=== PATIENT | female | born 2000 | race Caucasian/White ===

== ENCOUNTER 2019-01-21 10:29 | Inpatient (IN) ==
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
[2019-01-21 11:05] LABS: White Blood Count 8.2 K/mcL (4.3-11.1)
[2019-01-21 11:06] LABS: Basophils % 0.4 %; Eosinophils # 0.1 K/mcL (0.0-0.6); Eosinophils % 0.6 %; Hematocrit 42.8 % (35.3-44.9); Hemoglobin 14.8 g/dL (11.5-15.4); Immature Granulocytes % 0.4 % (0-4); Lymphocytes # 1.8 K/mcL (0.6-4.6); Lymphocytes % 21.7 %; Mean Corpuscular HGB Conc 34.6 g/dL (31.6-35.5); Mean Corpuscular Hemoglobin 28.5 pg (28.0-33.3); Mean Corpuscular Volume 82.5 fL (83.0-100.0); Mean Platelet Volume 9.6 fL (9.4-12.4); Monocytes # 0.8 K/mcL (0.0-1.3); Monocytes % 9.8 %; Neutrophils # 5.5 K/mcL (1.6-8.9); Platelet Count 399 K/mcL (140-400); Red Blood Count 5.19 M/mcL (3.82-4.97); Segmented Neutrophils % 67.1 %
--- NOTE | 2019-01-21 11:06 | Emergency Department Note ---
Disposition Clinical Impression: Suicidal ideation Depression Qualifiers: Depression Type: other depression Qualified Code(s): F32.89 - Other specified depressive episodes Disposition: Still a Patient Referrals: Keren Larson MD [Primary Care Provider] - Forms: ED Satisfaction Letter Time of Disposition: 11:06 General Adult HPI - General Chief complaint: ED Psychiatric Symptoms Stated complaint: psych eval Time Seen by Provider: 01/21/19 10:33 Source: patient Limitations: no limitations Nursing Notes Reviewed: Yes Vital Signs Reviewed: Yes - History of Present Illness HPI Narrative: ED attending attestation note: I examined this patient and my medical decision-making was reviewed with the emergency medicine resident Bea Aquino. I agree with the documented findings, disposition and treatment plan as described except to the extent set forth below. For any procedures performed I was present for the critical portions, and for any EKGs performed and reviewed I have looked over the EKG and interpretations and discussed with provider Briefly: A 18-year-old female history of depression presents with suicidal ideations with plan to "drive her car in traffic". Physical examination is benign afebrile with stable vitals. We will undergo medical clearance and evalu ation by mental health services. [place] slip properly completed executed signed and in chart. Pain Scale: 5 - Related Data Home Medications Medication Instructions Recorded Confirmed Insulin Pump Cartridge [Insulin 1 device SQ AD 11/07/18 11/07/18 Pump] Previous Rx's Medication Instructions Recorded Ondansetron ODT [Zofran ODT] 4 mg SL Q8HR PRN #14 tab.rapdis 11/07/18 Allergies Allergy/AdvReac Type Severity Reaction Status Date / Time No Known Allergies Allergy Verified 11/07/18 04:51 Constitutional: Denies: fever, chills Cardiovascular: Reports: chest pain (Associated with her anxiety. States it feels her normal anxiety.) Respiratory: Denies: cough, dyspnea Gastrointestinal: Denies: abdominal pain, nausea, vomiting, diarrhea Genitourinary: Denies: urgency, dysuria, frequency Psychiatric: Reports: anxiety, depression, suicidal thoughts. Denies: auditory hallucinations, visual hallucinations Past Medical History - Past Medical History Medical history: Reports: diabetes Surgical history: Reports: non-contributory Psychiatric history: Reports: no psych history - Social History Smoking Status: Never smoker Smokeless Tobacco Status: No Alcohol use: Reports: none Drug use: Reports: none Physical Exam - General Limitations: no limitations General appearance: alert, in no apparent distress Course Vital Signs Temperature 98.3 F 01/21/19 10:33 Pulse Rate 83 01/21/19 10:33 Respiratory Rate 16 01/21/19 10:33 Blood Pressure 128/96 01/21/19 10:33 O2 Sat by Pulse Oximetry 100 01/21/19 10:33 Temperature 98.3 F 01/21/19 10:33 Pulse Rate 83 01/21/19 10:33 Respiratory Rate 16 01/21/19 10:33 Blood Pressure 128/96 01/21/19 10:33 O2 Sat by Pulse Oximetry 100 01/21/19 10:33 Oxygen Delivery Oxygen Delivery Room Air
[2019-01-21 11:19] LABS: Bilirubin,Urine Negative (Negative); Blood,Urine Negative (Negative); Clarity,Urine Clear (Clear); Color,Urine Yellow (Yellow); Glucose,Urine (UA) 500 mg/dL (Normal); Ketones,Urine 15 mg/dL (Negative); Leukocyte Esterase,Urine Negative (Negative); Nitrite,Urine Negative (Negative); Protein,Urine Trace mg/dL (Neg-Trace); Specific Gravity,Urine 1.028 (1.010-1.025); Urobilinogen,Urine Normal (Normal)
[2019-01-21 11:20] LABS: Acetaminophen < 10 mcg/mL (10-20); BUN/Creatinine Ratio 16 (6-26); Blood Urea Nitrogen 11 mg/dL (6-20); Calcium 9.4 mg/dL (8.6-10.3); Carbon Dioxide 25 mEq/L (23-29); Chloride 105 mEq/L (98-107); Ethanol < 10 mg/dL (Less than 10); Glucose 154 mg/dL (70-105); Osmolality,Calculated 286 (280-300); Potassium 3.5 mEq/L (3.5-5.1); Salicylate < 2.5 mg/dL (15.0-30.0); Sodium 137 mEq/L (136-145); eGFR For African Americans > 60; eGFR For Non-African Americans > 60
[2019-01-21 11:26] LABS: Amphetamine Screen,Urine Negative ng/mL (Cutoff=1000); Barbiturate Screen,Urine Negative ng/mL (Cutoff=200); Benzodiazepines Screen,Urine Negative ng/mL (Cutoff=200); Cannabinoid Screen,Urine Negative ng/mL (Cutoff = 50); Cocaine Screen,Urine Negative ng/mL (Cutoff= 300); Opiate Screen,Urine Negative ng/mL (Cutoff=300); Phencyclidine Screen,Urine Negative ng/mL (Cutoff=25)
[2019-01-21] MEDS ORDERED: Haloperidol Lactate 5 MG/ML VIAL IM PRN (14:32)
[2019-01-21] MEDS ORDERED: Mag Hydrox/Al Hydrox/Simeth 30 ML UDC PO PRN (14:32)
[2019-01-21] MEDS ORDERED: *HR* LORazepam 1 MG TABLET PO PRN (14:32)
[2019-01-21] MEDS ORDERED: *HR* LORazepam 2 MG/ML VIAL IM PRN (14:32)
[2019-01-21] MEDS ORDERED: Ibuprofen 400 MG TABLET PO PRN (14:32)
[2019-01-21] MEDS ORDERED: MOM Conc 10 ML UD.LIQ PO PRN (14:32)
[2019-01-21] MEDS: INSULIN PUMP CARTRIDGE SQ SCH (15:19)
[2019-01-21] MEDS ORDERED: Dextrose Gel 15 GM/37.5 ML TUBE PO PRN ×2 (15:21)
--- NOTE | 2019-01-21 15:23 | Electrocardiograph Report ---
[facility] Test Date: 2019-01-21 Pat Name: Arianna Alegria Department: EXAM3 Room: 1A41 Gender: F Cabinet Finisher: : 2000 Requested By: Astrid Aquino Order Number: [id number] Reading MD: Lee Bergeron Measurements Intervals [place] Rate: 76 P: 65 VA: 132 QRS: 68 QRSD: 93 T: 42 QT: 393 QTc: 442 Interpretive Statements Sinus arrhythmia Electronically Signed On 01-21-2019 15:22:00 EDT by Lee Bergeron
[2019-01-22] MEDS: BuPROPion XL (24 HR) 150 MG TABLET PO SCH (10:11)
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
[2019-01-22] MEDS: INSULIN PUMP CARTRIDGE SQ SCH (15:37)
[2019-01-22] MEDS: traZODone 50 MG TABLET PO PRN (23:53)
[2019-01-22] MEDS: hydrOXYzine pamoate 25 MG CAPSULE PO PRN (23:53)
[2019-01-23] MEDS: BuPROPion XL (24 HR) 150 MG TABLET PO SCH (09:24)
--- NOTE | 2019-01-23 09:38 | Psychiatry Progress Note ---
Date of Encounter: 01/23/19 Time of Encounter: 09:34 Subjective Interval history: Client reports feeling a little better. SI has lessened. Took Trazodone last night and slept really well. Already asking to have this medication at the time of discharge. Discussed how important sleep is for mental health. Client reports she can normally sleep really well but that recent stressors have her feeling overly anxious. States last night her anxiety was bad. Things her ex- girlfriend said to her played over in her head "like a broken record." Still easily tearful when talking about her break-up and the accusations her ex made against her. Reports prn Vistaril helped with this. Not quite ready for discharge but looking a little better. Has been pleasant and cooperative on the unit. Attending groups. Blood sugars have been controlled. Family supportive and visited last night. Review of Systems Constitutional: Denies: fever, chills, weakness, weight change Eyes: Denies: eye pain, vision change Ears, Nose, Throat: Denies: ear pain, throat pain, dental pain, hearing loss, congestion Cardiovascular: Denies: chest pain, palpitations, dyspnea on exertion Respiratory: Denies: cough, dyspnea, wheezes Gastrointestinal: Denies: abdominal pain, nausea, vomiting, diarrhea, constipation Musculoskeletal: Denies: joint swelling, joint pain Neurological: Denies: headache, weakness, numbness, memory loss Psychiatric: Reports: depression, abnormal sleep pattern, suicidal ideation (Suicide ideation off and on for past year. Not experiencing it presently during interview. ), change in appetite (Decrease appetite for past week since breaking up with her partner. ), anhedonia, change in libido, difficulty concentrating Results - Vital Signs Vital Signs: Temp Pulse Resp BP Pulse Ox 98.7 F 101 20 137/80 99 01/23/19 09:00 01/23/19 09:00 01/23/19 09:00 01/23/19 09:00 01/23/19 09:00 Assessment and Plan (1) Major depress dis, severe Current visit: Yes Status: Acute Plan: Continue hospitalization, Close observation, Suicide Precautions per unit protocol, Encourage participation in unit milieu, Group Therapy, Monitor sleep, Monitor appetite Risks, benefits, side effects, alternatives discussed w/pt: Yes Patient agreeable to treatment: Yes Consult Discharge Plan - Plan Referrals: [facility] [Outside] (Message left with scheduling to set up appointment. 1A Equity Analyst will call patient with appointment if discharged over the weekend.) Psychiatry Exam - Constitutional Vitals: Temp Pulse Resp BP Pulse Ox 98.7 F 101 20 137/80 99 01/23/19 09:00 01/23/19 09:00 01/23/19 09:00 01/23/19 09:00 01/23/19 09:00 General appearance: age & developmentally appropriate, well-groomed, well- nourished - Musculoskeletal Gait: normal Station: relaxed Strength & Tone: normal for patient - Psychiatric Patient Orientation: Yes Person, Yes Time, Yes Place Level of alertness: Alert Behavior: calm, cooperative Psychomotor activity: Normal Eye Contact: Maintains Eye Contact Mood Description: Depressed Affect description: congruent with mood Speech Volume: Normal Speech pattern: normal rate, normal rhythm, normal tone, fluent, spontaneous Language & Vocabulary: consistent with education Thought Process: Linear, Goal Oriented Thought Content: Yes Suicidal ideation, No Homicidal ideation, No Overt delusions Perceptual Disturbances: No Auditory hallucinations, No Visual hallucinations Attention Span Ability: Capable of Focused Attention Memory Description: Grossly Intact Patient Reliability: Reliable Historian Fund of knowledge: Yes abstraction ability, Yes aware of current events Intelligence Estimate: Average Judgment: Fair Insight: Partial
[2019-01-23] MEDS: hydrOXYzine pamoate 25 MG CAPSULE PO PRN ×2 (15:07→22:52)
[2019-01-23] MEDS: INSULIN PUMP CARTRIDGE SQ SCH (21:13)
[2019-01-23] MEDS: traZODone 50 MG TABLET PO PRN (22:52)
[2019-01-24] MEDS: BuPROPion XL (24 HR) 150 MG TABLET PO SCH (08:58)
--- NOTE | 2019-01-24 09:04 | Discharge Summary ---
Date of Encounter: 01/24/19 Time of Encounter: 09:01 Diagnosis - Discharge Diagnosis (1) Major depress dis, severe Status: Acute Medications - Discharge Medications Prescriptions: traZODone [TraZODone] 50 mg PO HS PRN #30 tablet PRN Reason: Insomnia hydrOXYzine pamoate [Vistaril] 25 mg PO TID PRN #90 capsule PRN Reason: Anxiety BuPROPion XL (24 HR) [Wellbutrin Xl] 150 mg PO DAILY #30 tab.er.24h Glucagon,Human Recombinant [Glucagon Emergency Kit] 1 mg IM AD PRN 01/21/19 [History] Insulin ASPART [NovoLOG] 0 - 70 unit SQ DAILY 01/21/19 [History] BuPROPion XL (24 HR) [Wellbutrin Xl] 150 mg PO DAILY #30 tab.er.24h 01/24/19 [Rx] Patient Taking Own Medication 1 each SQ AD each 01/24/19 [Rx] hydrOXYzine pamoate [Vistaril] 25 mg PO TID PRN #90 capsule 01/24/19 [Rx] traZODone [TraZODone] 50 mg PO HS PRN #30 tablet 01/24/19 [Rx] Allergy/AdvReac Type Severity Reaction Status Date / Time No Known Allergies Allergy Verified 01/21/19 20:48 Results Procedures and tests throughout hospitalization: Completed Lab Orders Category Date Time Status Acetaminophen Stat Lab 01/21/19 10:45 Completed Basic Metabolic Panel Stat Lab 01/21/19 10:45 Completed Complete Blood Count [HEME] Stat Lab 01/21/19 10:45 Completed Drug Screen, Urine [UCHEM] Stat Lab 01/21/19 10:55 Completed Ethanol Stat Lab 01/21/19 10:45 Completed HCG,Routine Test Stat Lab 01/21/19 10:45 Completed Salicylate Stat Lab 01/21/19 10:45 Completed Urinalysis reflex Microscopic [URIN] Stat Lab 01/21/19 10:55 Completed Provider Date of admission: 01/21/19 12:30 Primary care physician: PCP NONE Discharging clinician: Alison Anton Psychiatry Exam - Constitutional Vitals: Temp Pulse Resp BP Pulse Ox 98.7 F 78 16 132/80 98 01/23/19 19:25 01/23/19 19:25 01/23/19 19:25 01/23/19 19:25 01/23/19 19:25 General appearance: age & developmentally appropriate, well-groomed, well- nourished - Musculoskeletal Gait: normal Station: relaxed Strength & Tone: normal for patient - Psychiatric Patient Orientation: Yes Person, Yes Time, Yes Place Level of alertness: Alert Behavior: calm, cooperative Psychomotor activity: Normal Eye Contact: Maintains Eye Contact Mood Description: Anxious Affect description: full range Speech Volume: Normal Speech pattern: normal rate, normal rhythm, normal tone, fluent, spontaneous Language & Vocabulary: consistent with education Thought Process: Linear, Goal Oriented Thought Content: No Suicidal ideation, No Homicidal ideation, No Overt delusions Perceptual Disturbances: No Auditory hallucinations, No Visual hallucinations Attention Span Ability: Capable of Focused Attention Memory Description: Grossly Intact Patient Reliability: Reliable Historian Fund of knowledge: Yes abstraction ability, Yes aware of current events Intelligence Estimate: Average Judgment: Fair Insight: Partial Hospital Course Hospital course: Ms. Alegria is a 18 year old female who was admitted for SI after a recent break-up with her girlfriend. Client was started on Wellbutrin along with prn Trazodone and Vistaril with good clinical effect. Client is a Type 1 diabetic and previous antidepressants interfered with her blood sugars. However, client seemed to tolerate this new regimen without difficulty. While on the unit she was social with her peers and regularly attended groups. She ate and slept well. Today she is denying any further SI, intent, or plan. She is bright, reactive, and future oriented. This investigative writer spoke with both of her parents this morning to allow them to ask any questions. Client intends to live with them for the next few weeks and states this will be a supportive environment for her. Client is already linked with [facility] for outpatient follow-up and is aware of when her next appointment is scheduled. Total time spent with client greater than 30 minutes. Patient was educated of her diagnosis and the risks, benefits, and side effects of this treatment and alternative treatment options and was monitored for r esponsiveness and side effects. Mood, anxiety, sleep, appetite, and interest improved, as did future orientation. Self-harm thoughts subsided, thinking cleared, psychosis resolved, and mood stabilized. Patient was able to attend both individual and group therapy sessions as well as meeting with the psychiatrist daily and urged to discuss any medication or treatment issues or other concerns. The patient was educated primarily by verbal means about their diagnosis and manifestations in their life. The option for treatment including group and individual therapy programming was offered to the patient in the use of medications with all their potential risks, benefits, and side effects were discussed with the patient at length. The patient was given the opportunity to ask questions and was noted to participate in the treatment in the planning process. The patient felt ready and eager to be discharged from the inpatient psychiatric unit to continue on with treatment as an outpatient. The patient agreed that she is safe for this disposition. The patient was considered to be able to participate in informed consent and decision making with respect to medical, legal, and financial issues of the time of discharge. At the time of discharge the patient adamantly denied any concerns for lethality including suicidal or homicidal thoughts ideations or plans and was future oriented toward ongoing mental health care, medical follow-up and sobriety. - Time Spent with Patient Total time spent providing and/or coordinating discharge services: Greater than 30 minutes Assessment and Plan - Patient/Caregiver Discharge Instructions Activity: resume usual activities as tolerated Diet: diabetic diet - Follow up Plan Follow up with: [facility] [Outside] (Message left with scheduling to set up appointment. 1A Kosher Inspector will call patient with appointment if discharged over the weekend.) Functional capacity at discharge: independent ambulation Overall status at discharge: Stable Disposition: Home, Self-Care Quality - Multiple Antipsychotics Patient discharged on 2 or more antipsychotic medications: No Procedures - Procedures Procedures: Medication Management, Crisis Stabilization, Supportive Therapy, Group Therapy
[2019-01-24 09:18] VITALS: BP 133/84
[2019-01-24] MEDS: hydrOXYzine pamoate 25 MG CAPSULE PO PRN (09:41)
== END 2019-01-24 11:35 | disposition home or self-care (01) | DRG 885 ==
LOC: EMEROOARM 10:29 → 1ANU 12:30
PROVIDERS: ADMIT Psychiatry & Neurology Psychiatry; ATTEND Psychiatry & Neurology Psychiatry